=== PATIENT | female | born 2005 | race Caucasian/White ===

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

== ENCOUNTER 2024-06-24 21:47 | Emergency (ER) | payer MEDICAID, SELFPAY ==
[2024-06-24 22:01] VITALS: BP 121/78; PULSE 91; RESP 16; TEMP 36.7; O2SAT 99; BMI 19.7
--- NOTE | 2024-06-24 22:20 | USR_ITS ---
PROCEDURE INFORMATION: Exam: US First Trimester, Transabdominal and US , Transvaginal Exam date and time: 06/24/2024 10:56 PM Age: 19 years old Clinical indication: complicated by abdominal or pelvic pain; Lower; First trimester (<14 weeks 0 days); Gestational age or lmp: 4w; Additional info: Cramping, lmp 05/24/24 LABS AND CLINICAL REPORTS: Last menstrual period start date: 05/24/2024 Estimated due date (Established): 02/28/2025 TECHNIQUE: Imaging protocol: Real-time transabdominal obstetrical ultrasound of the maternal pelvis and a first trimester , less than 14 weeks 0 days, with image documentation. Transvaginal imaging was used for better evaluation of the fetus, adnexa, and/or cervix. COMPARISON: CT chest abdpel w/*[id number] 08/09/2023 4:08 PM FINDINGS: GESTATION: Gestation: Not visualized. Embryo/ cardiac activity (BPM): Not detected. Extra-embryonic membranes/Placenta: Not visualized. Amniotic/Chorionic fluid: Not visualized. MATERNAL: Uterus: Unremarkable. Endometrial stripe 1.0 cm in thickness. Cervix: Cervical length measures 3.1 cm. Trace fluid in the cervix. Right ovary/adnexa: Right ovary measures 2.4 x 1.7 x 3.1 cm. Subcentimeter anechoic structure in the right ovary likely a dominant follicle or corpus luteal cyst. Normal waveforms and color Doppler imaging. Left ovary/adnexa: Left ovary measures 1.5 x 1.5 x 2.1 cm. Normal waveforms on color Doppler imaging. Intraperitoneal space: No intraperitoneal free fluid. Urinary bladder: Small echogenic debris within the urinary bladder. US/US OB <=14 wk fetus w transvag IMPRESSION: 1. No intrauterine identified, possibly too early for dates. Correlate with beta HCG levels and consider short interval imaging follow-up as clinically warranted. 2. Small amount of echogenic debris within the urinary bladder could represent infection versus hemorrhage. Correlate with clinical findings. 3. Additional ancillary findings as above.
--- NOTE | 2024-06-24 22:20 | PC.NURSE ---
this nurse assumed pt care from Teresa GODWIN at 2220.
--- NOTE | 2024-06-24 22:22 | ED_ITS ---
HPI - 2 General: Chief complaint: Abdominal Pain Stated complaint: 4 wk preg spotting cramping Time Seen by Provider: 06/24/24 22:08 Source: patient Mode of arrival: ambulatory Limitations: no limitations History of Present Illness: Patient is a 19-year-old female that presents to the emergency department with pelvic cramping. She states she recently found out that she was but does not have an appointment with an CARDIOLOGY MANAGER until July 10. She states she began having some cramping today. She denies any bleeding or spotting. She denies any pain or burning with urination or blood in her urine. She denies any back pain. She states she has had some vaginal discharge but no known exposures to sexually transmitted infections. She states this is her first . She states she has had a mild cough and some shortness of breath with the cough. She denies any fever or chills. She denies any leg pain or swelling. She denies any significant nausea or vomiting. She presents to the emergency department for further evaluation and treatment. Associated symptoms: Reports abdominal pain (Suprapubic); Deny dysuria, headache(s), nausea or vomiting Related Data Allergies Allergy/AdvReac Type Severity Reaction Status Date / Time No Known Allergies Allergy Verified 08/09/23 15:44 Review of Systems 2 Const: Reports: chills (Intermittent); Denies: fever(s) Eyes: Denies: eye discharge or eye redness ENMT: Denies: throat pain or ear or mastoid pain Card: Denies: chest pain or edema Resp: Reports: dyspnea (Mild) and non-productive cough; Denies: wheezing or stridor GI: Reports: abdominal pain (Suprapubic); Denies: nausea, vomiting or hematemesis : Denies: flank pain, difficulty voiding, dysuria or urinary frequency Musc: Denies: back pain, extremity pain or extremity swelling Skin/Breast: Denies: rash or pruritus Neuro: Denies: headache(s), numbness in extremities or weakness in extremities Psych: Denies: anxiety or depression Endo: Denies: polyuria or polydipsia Popeye/Lymph: Denies: petechiae All/Imm: Denies: throat swelling or tongue swelling PFSH ED 2 PFSH: Medical History (Updated 06/25/24 @ 00:54 by RUBEN Hardwick) No pertinent past medical history Surgical History (Updated 06/24/24 @ 22:37 by RUBEN Hardwick) No pertinent past surgical history Social History (Updated 06/24/24 @ 22:37 by RUBEN Hardwick) Smoking and tobacco/nicotine status: former use of tobacco/nicotine Physical Exam 2 Const: COMMON NORMALS: no acute distress, patient oriented x3 and alert G ENERAL APPEARANCE: cooperative ORIENTATION/CONSCIOUSNESS: Yes awake HENMT: COMMON NORMALS: normocephalic, atraumatic, external ears normal, EAC's normal, TM's normal bilaterally and Normal external nose present HEAD & SCALP: normocephalic and atraumatic FACE & SINUS: normal facial exam NOSE: Normal external nose present and Normal nares present EXTERNAL EAR: Yes external ears normal EXTERNAL AUDITORY CANAL: EAC's normal TYMPANIC MEMBRANE: TM's normal bilaterally MOUTH: Normal oral and palatal mucosa present THROAT: posterior oropharynx normal and tonsils normal Eye: COMMON NORMALS: conjunctivae normal ALIGNMENT: Yes alignment normal CONJUNCTIVA: Yes conjunctivae normal Neck/C-Spine: COMMON NORMALS: full ROM Resp: COMMON NORMALS: normal respiratory effort, No retractions, No use of accessory muscles and clear to auscultation bilaterally AUSCULTATION: clear to auscultation bilaterally, no crackles, no rales, no rhonchi and no wheezes Cardio: COMMON NORMALS: regular rate and regular rhythm RATE: regular rate RHYTHM: regular rhythm GI: COMMON NORMALS: Normal to inspection, nondistended, normoactive bowel sounds present, Soft to palpation and non-tender PALPATION: Yes Soft to palpation RECTAL EXAM: deferred : COMMON NORMALS: Yes no CVA tenderness BLADDER/KIDNEY EXAM: Yes no CVA tenderness OB/EXTERNAL & SPECULUM: Deferred OB/external & speculum exam (Patient declines a pelvic exam) Back/Pelvis: COMMON NORMALS: no CVA tenderness Extremity: COMMON NORMALS: normal to inspection, full ROM, no calf tenderness and no pedal edema Neuro: COMMON NORMALS: patient oriented x3 SENSORIUM/ORIENTATION: Yes alert Psych: COMMON NORMALS: cooperative, normal affect and speech normal A TTITUDE: Yes calm ACTIVITY/MOTOR BEHAVIOR: Yes appropriate eye contact S PEECH: Yes normal speech Skin: COMMON NORMALS: no rashes or lesions noted and no wounds GENERAL SKIN EXAM: no rashes or lesions noted Course 2 Vital Signs: Vital signs: Vital Signs Temperature 98.1 F 06/24/24 22:01 Pulse Rate 91 06/24/24 22:01 Respiratory Rate 16 06/24/24 22:01 Blood Pressure 121/78 06/24/24 22:01 Pulse Oximetry 99 06/24/24 22:01 Oxygen Delivery Me thod Room Air 06/24/24 22:01 MDM - OB/Uterine Contractions Medical Decision Making Patient was advised of the exam, lab and imaging findings. Thankfully the patient is O+ blood type. She does not have any vaginal bleeding. She denies any pain or burning with urination and there is no sign of urinary tract infection. She did not have any blood in her urine either. There was a small amount of echogenic debris within the bladder that could represent infection versus hemorrhage but neither one of these is consistent with a urinalysis. The patient declined a pelvic exam and so she did not have any swabs obtained at this visit to rule out possible infection. The patient was advised she will need to follow-up with her CARDIOLOGY MANAGER for serial hCG levels and possibly an additional ultrasound as well as any additional tests that they feel are necessary. She was advised to return immediately to the emergency department with any worsening pain, fever or any other worsening symptoms. The patient expressed understanding. Lab Data I reviewed the patient's lab results. 06/24/24 23:17 06/24/24 23:17 Radiology Impressions Obstetrics Ultrasound 06/24/24 22:20 IMPRESSION: 1. No intrauterine identified, possibly too early for dates. Correlate with beta HCG levels and consider short interval imaging follow-up as clinically warranted. 2. Small amount of echogenic debris within the urinary bladder could represent infection versus hemorrhage. Correlate with clinical findings. 3. Additional ancillary findings as above. Laboratory Results WBC 7.07 10^3/uL (4.5-13.0) 06/24/24 23:17 RBC 4.10 10^6/uL (3.85-5.65) 06/24/24 23:17 Hgb 11.90 g/dL (12.4-14.8) L 06/24/24 23:17 Hct 36.1 % (36-47) 06/24/24 23:17 MCV 88.0 fl (85-98) 06/24/24 23:17 MCH 29.0 pg (27-33) 06/24/24 23:17 MCHC 33.0 g/dL (30-55) 06/24/24 23:17 RDW 12.8 % (12.1-15.1) 06/24/24 23:17 Plt Count 251 10^3/cmm (157-399) 06/24/24 23:17 MPV 10.8 fL (7.4-10.4) H 06/24/24 23:17 Neut % (Auto) 42.3 % 06/24/24 23:17 Lymph % (Auto) 47.5 % 06/24/24 23:17 Butler % (Auto) 6.4 % 06/24/24 23:17 Eos % (Auto) 3.0 % 06/24/24 23:17 Baso % (Auto) 0.7 % 06/24/24 23:17 Neut # (Auto) 2.99 10^3/uL (1.8-8.0) 06/24/24 23:17 Lymph # (Auto) 3.4 10^3/uL (1.5-6.5) 06/24/24 23:17 Butler # (Auto) 0.5 10^3/uL (0.2-0.9) 06/24/24 23:17 Eos # (Auto) 0.2 10^3/uL (0.0-0.8) 06/24/24 23:17 Baso # (Auto) 0.1 10^3/uL (0.0-0.1) 06/24/24 23:17 Nucleated RBC % (auto) 0 % 06/24/24 23:17 Nucleated RBCs # 0.0 /100WBC 06/24/24 23:17 Sodium 136 mmol/L (136-145) 06/24/24 23:17 Potassium 3.7 mmol/L (3.5-5.1) 06/24/24 23:17 Chloride 103 mmol/L (98-107) 06/24/24 23:17 Carbon Dioxide 23 mmol/L (22-29) 06/24/24 23:17 Anion Gap 13.7 (5-19) 06/24/24 23:17 BUN 6 mg/dL (6-20) 06/24/24 23:17 Creatinine 0.7 mg/dL (0.5-0.9) 06/24/24 23:17 GFR Calculation 106.7 mL/min (90-130) 06/24/24 23:17 Glucose 83 mg/dL (65-115) 06/24/24 23:17 Calculated Osmolality 279 mOsm/kg (285-295) L 06/24/24 23:17 Calcium 9.1 mg/dL (8.5-10.5) 06/24/24 23:17 Total Bilirubin 0.6 mg/dL (0.15-1.2) 06/24/24 23:17 AST 11 U/L (0-32) 06/24/24 23:17 ALT 7 U/L (0-33) 06/24/24 23:17 Alkaline Phosphatase 46 U/L (35-105) 06/24/24 23:17 Total Protein 7.1 g/dL (6.6-8.7) 06/24/24 23:17 Albumin 4.2 g/dL (3.5-5.2) 06/24/24 23:17 Globulin 2.9 g/dL (1.3-4.6) 06/24/24 23:17 Ser , Semi-Qnt 265.10 mIU/mL 06/24/24 23:17 Urine Color Yellow (Yellow) 06/24/24 22:22 Urine Appearance Clear (CLEAR) 06/24/24 22:22 Urine pH 5.5 (5-7) 06/24/24 22:22 Ur Specific [place] 1.017 (1.005-1.030) 06/24/24 22:22 Urine Protein Negative (Negative) 06/24/24 22:22 Urine Glucose (UA) Negative (Normal) 06/24/24 22:22 Urine Ketones Trace (Negative) 06/24/24 22:22 Urine Blood Negative (Negative) 06/24/24 22:22 Urine Nitrate Negative (Negative) 06/24/24 22:22 Urine Bilirubin Negative (Negative) 06/24/24 22:22 Urine Urobilinogen 1.0 mg/dL (Negative) 06/24/24 22:22 Ur Leukocyte Esterase Negative (Negative) 06/24/24 22:22 Amorphous Sediment Not Reportable 06/24/24 22:22 Influenza A (PCR) Negative (Negative) 06/24/24 22:37 Influenza Type B (PCR) Negative (Negative) 06/24/24 22:37 RSV (PCR) Negative (Negative) 06/24/24 22:37 SARS-CoV-2 (PCR) Negative (Negative) 06/24/24 22:37 Blood Type O Positive 06/24/24 23:14 Rho(D) Type Rh positive 06/24/24 23:14 All radiology interpretation(s) finalized by discharge Critical Care Time 2 Critical Care Time: Critical Care Time: No Discharge Plan Discharge Patient Disposition: Home Clinical Impression: Abdominal cramping affecting Condition: Stable Prescriptions: Discontinued diclofenac sodium 75 mg tablet,delayed release (DR/EC) 75 mg PO Q12H PRN (Reason: pain) Qty: 20 0RF Discharge Orders: Discharge ED (Routine); Ordered 06/25/24 Ordered By: Alan Lira Referrals: Marita Gomez, [employer]OCI[employer] JUDGE [Primary Care Provider] - Discharge Diet: Usual diet Discharge Activity: Resume usual activity Patient Instructions: Opioid Safety, Pain Management, Abdominal Pain in (ED), Threatened Miscarriage (ED) Activity Restrictions/Additional Instructions: [id number] Tylenol as needed for cramping. Rest, increase fluids. Follow-up with your CARDIOLOGY MANAGER as you may need additional blood test to follow the . You may also need an additional ultrasound. Return to the emergency department with any worsening symptoms such as heavy vaginal bleeding, fever, worsening abdominal pain/cramping or any other worsening symptoms. Print Language: Indian Coding Level of Care Code ED Credit And Collection Manager for [place] Bautista
[2024-06-24 22:36] LABS: Add Urine Microscopic? NO
[2024-06-24 22:38] LABS: Bilirubin Urine Negative (Negative); Blood Urine Negative (Negative); Glucose Urine UA Negative (Normal); Ketones Urine Trace (Negative); Leukocyte Esterase Urine Negative (Negative); Nitrate Urine Negative (Negative); Protein Urine Negative (Negative); Specific Gravity, Urine 1.017 (1.005-1.030); Urine Appearance Clear (CLEAR); Urine Color Yellow (Yellow); pH Urine 5.5 (5-7)
[2024-06-24 22:41] LABS: Charge for UA Resulting for Rev
[2024-06-24 23:24] LABS: Influenza A NEGATIVE (Negative); Influenza B NEGATIVE (Negative); Respiratory Syncytial Virus Ce NEGATIVE (Negative); SARS-CoV-2 PCR NEGATIVE (Negative)
[2024-06-24 23:24] LABS: Basophils # 0.1 10^3/uL (0.0-0.1); Basophils % 0.7 %; Eosinophils # 0.2 10^3/uL (0.0-0.8); Hematocrit 36.1 % (36-47); Lymphocytes # 3.4 10^3/uL (1.5-6.5); Lymphocytes % 47.5 %; Mean Platelet Volume 10.8 fL (7.4-10.4); Monocytes # 0.5 10^3/uL (0.2-0.9); Monocytes % 6.4 %; Neutrophils # 2.99 10^3/uL (1.8-8.0); Neutrophils % 42.3 %; Nucleated Red Blood Cells % 0 %; Platelet Count 251 10^3/cmm (157-399); Red Cell Distribution Width 12.8 % (12.1-15.1); White Blood Count 7.07 10^3/uL (4.5-13.0)
[2024-06-24 23:56] LABS: Alanine Aminotransferase 7 U/L (0-33); Albumin Level 4.2 g/dL (3.5-5.2); Alkaline Phosphatase 46 U/L (35-105); Anion Gap 13.7 (5-19); Aspartate Amino Transferase 11 U/L (0-32); Blood Urea Nitrogen 6 mg/dL (6-20); Calcium 9.1 mg/dL (8.5-10.5); Carbon Dioxide 23 mmol/L (22-29); Chloride 103 mmol/L (98-107); Creatinine Clr Calc Pharmacy 108.6486; Globulin 2.9 g/dL (1.3-4.6); Glomerular Filtration Rate 106.7 mL/min (90-130); Glucose 83 mg/dL (65-115); Osmolality Calculated 279 mOsm/kg (285-295); Potassium 3.7 mmol/L (3.5-5.1); Sodium 136 mmol/L (136-145); Total Bilirubin 0.6 mg/dL (0.15-1.2); Total Protein 7.1 g/dL (6.6-8.7)
== END 2024-06-25 01:09 | disposition home or self-care (01) ==
PROVIDERS: Emergency Provider Physician Assistant; PCP Nurse Practitioner Family
DX: O26.899 Other specified pregnancy related conditions, unspecified trimester (principal); Z87.891 Personal history of nicotine dependence; Z11.52 Encounter for screening for COVID-19
CPT/HCPCS: 12345; 36415; 76801; 76817; 80053; 81003; 84702; 85025; 86900; 87637; 99284

== ENCOUNTER → 2024-07-10 08:35 | Outpatient (BNVA) | payer MEDICAID, SELFPAY | PROVIDERS: PCP Nurse Practitioner Family; Visit Provider Nurse Practitioner Women's Health | DX: Z32.01 Encounter for pregnancy test, result positive (principal); N91.2 Amenorrhea, unspecified | CPT/HCPCS: 81025; 84702; 86850; 86900 ==

== ENCOUNTER → 2024-07-18 07:59 | Outpatient (BNVA) | payer MEDICAID, SELFPAY | PROVIDERS: PCP Nurse Practitioner Family; Visit Provider Nurse Practitioner Women's Health | DX: O34.591 Maternal care for other abnormalities of gravid uterus, first trimester (principal); N83.11 Corpus luteum cyst of right ovary | CPT/HCPCS: 76801 ==

== ENCOUNTER → 2024-08-08 08:17 | Outpatient (BNVA) | payer MEDICAID, SELFPAY | PROVIDERS: PCP Nurse Practitioner Family; Visit Provider Nurse Practitioner Women's Health | DX: Z34.90 Encounter for supervision of normal pregnancy, unspecified, unspecified trimester (principal) | CPT/HCPCS: 80307; 84315; 84443; 85025; 86592; 86762; 86803; 87086; 87340; 87491; 87591; 87661; 87806 ==

== ENCOUNTER → 2024-08-17 10:24 | Outpatient (BNVA) | payer MEDICAID, SELFPAY | PROVIDERS: PCP Nurse Practitioner Family; Visit Provider Obstetrics & Gynecology | DX: Z34.90 Encounter for supervision of normal pregnancy, unspecified, unspecified trimester (principal) | CPT/HCPCS: 84315 ==

== ENCOUNTER → 2024-09-14 08:06 | Outpatient (BNVA) | payer MEDICAID, SELFPAY | PROVIDERS: PCP Nurse Practitioner Family; Visit Provider Nurse Practitioner Women's Health | DX: Z34.90 Encounter for supervision of normal pregnancy, unspecified, unspecified trimester (principal) | CPT/HCPCS: 82105; 84315 ==

== ENCOUNTER → 2024-10-12 09:32 | Outpatient (BNVA) | payer MEDICAID, SELFPAY | PROVIDERS: PCP Nurse Practitioner Family; Visit Provider Obstetrics & Gynecology | DX: Z34.92 Encounter for supervision of normal pregnancy, unspecified, second trimester (principal) | CPT/HCPCS: 76805 ==

== ENCOUNTER → 2024-10-18 08:03 | Outpatient (BNVA) | payer MEDICAID, SELFPAY | PROVIDERS: PCP Nurse Practitioner Family; Visit Provider Obstetrics & Gynecology | DX: Z34.90 Encounter for supervision of normal pregnancy, unspecified, unspecified trimester (principal) | CPT/HCPCS: 84315 ==

== ENCOUNTER → 2024-11-09 11:43 | Outpatient (BNVA) | payer MEDICAID, SELFPAY | PROVIDERS: PCP Nurse Practitioner Family; Visit Provider Nurse Practitioner Women's Health | DX: Z36.9 Encounter for antenatal screening, unspecified (principal) | CPT/HCPCS: 76816 ==

== ENCOUNTER → 2024-11-20 08:46 | Outpatient (BNVA) | payer MEDICAID, SELFPAY | PROVIDERS: PCP Nurse Practitioner Family; Visit Provider Nurse Practitioner Women's Health | DX: Z34.90 Encounter for supervision of normal pregnancy, unspecified, unspecified trimester (principal) | CPT/HCPCS: 84315 ==

== ENCOUNTER → 2024-12-11 08:20 | Outpatient (BNVA) | payer MEDICAID, SELFPAY | PROVIDERS: PCP Nurse Practitioner Family; Visit Provider Obstetrics & Gynecology | DX: Z34.90 Encounter for supervision of normal pregnancy, unspecified, unspecified trimester (principal) | CPT/HCPCS: 82950; 84315; 85025 ==

== ENCOUNTER → 2024-12-21 09:24 | Outpatient (BNVA) | payer MEDICAID, SELFPAY | PROVIDERS: PCP Nurse Practitioner Family; Visit Provider Obstetrics & Gynecology | DX: Z34.90 Encounter for supervision of normal pregnancy, unspecified, unspecified trimester (principal) | CPT/HCPCS: 84315 ==

== ENCOUNTER → 2025-01-10 15:42 | Outpatient (BNVA) | payer MEDICAID, SELFPAY | PROVIDERS: PCP Nurse Practitioner Family; Visit Provider Obstetrics & Gynecology | DX: Z34.90 Encounter for supervision of normal pregnancy, unspecified, unspecified trimester (principal) | CPT/HCPCS: 84315 ==

== ENCOUNTER 2025-01-22 15:08 | Outpatient (CLI) | payer MEDICAID, SELFPAY | END 2025-01-22 15:09 | disposition home or self-care (01) | LOC: RAD 15:11 | PROVIDERS: PCP Nurse Practitioner Family; Visit Provider Nurse Practitioner Women's Health | DX: Z34.90 Encounter for supervision of normal pregnancy, unspecified, unspecified trimester (principal) | CPT/HCPCS: 84315 ==

== ENCOUNTER 2025-02-05 08:53 | Outpatient (CLI) | payer MEDICAID, SELFPAY ==
[2025-02-05] VITALS (13 sets, daily range): BP systolic 101–146; BP diastolic 64–98; PULSE 79–109; RESP 18; BMI 27.1
[2025-02-05 11:04] LABS: Hematocrit 31.3 % (36-47); Hemoglobin 10.20 g/dL (11.27-16.99); Mean Corpuscular HGB Conc 32.6 g/dL (30-55); Mean Corpuscular Hemoglobin 27.6 pg (27-33); Mean Corpuscular Volume 84.8 fl (85-98); Nucleated Red Blood Cells % 0 %; Platelet Count 263 10^3/cmm (157-399); Red Blood Count 3.69 10^6/uL (3.85-5.65); White Blood Count 10.65 10^3/uL (3.29-11.43)
[2025-02-05 11:27] LABS: Alanine Aminotransferase 8 U/L (0-33); Albumin Level 3.5 g/dL (3.5-5.2); Alkaline Phosphatase 160 U/L (35-105); Anion Gap 18.1 (5-19); Aspartate Amino Transferase 18 U/L (0-32); Blood Urea Nitrogen 6 mg/dL (6-20); Calcium 8.6 mg/dL (8.5-10.5); Carbon Dioxide 20 mmol/L (22-29); Chloride 102 mmol/L (98-107); Creatinine Clr Calc Pharmacy 166.3356; Globulin 3.0 g/dL (1.3-4.6); Glucose 81 mg/dL (65-115); Osmolality Calculated 279 mOsm/kg (285-295); Potassium 4.1 mmol/L (3.5-5.1); Sodium 136 mmol/L (136-145); Total Protein 6.5 g/dL (6.6-8.7)
== END 2025-02-05 12:13 | disposition home or self-care (01) ==
LOC: OPOB 08:54 → OBGYN 08:56
PROVIDERS: PCP Nurse Practitioner Family; Visit Provider Obstetrics & Gynecology
DX: O13.9 Gestational [pregnancy-induced] hypertension without significant proteinuria, unspecified trimester (principal); Z3A.00 Weeks of gestation of pregnancy not specified
CPT/HCPCS: 36415; 59025; 80053; 84315; 85025; 87081; 99211

== ENCOUNTER 2025-02-06 09:02 | Outpatient (CLI) | payer MEDICAID, SELFPAY ==
[2025-02-06 09:27] LABS: Total Volume, Urine 2200 mL
== END 2025-02-06 09:03 | disposition home or self-care (01) ==
LOC: OPOB 09:02
PROVIDERS: PCP Nurse Practitioner Family; Visit Provider Obstetrics & Gynecology
DX: O26.899 Other specified pregnancy related conditions, unspecified trimester (principal); Z3A.00 Weeks of gestation of pregnancy not specified
CPT/HCPCS: 84156

== ENCOUNTER 2025-02-07 08:03 | Outpatient (CLI) | payer MEDICAID, SELFPAY ==
--- NOTE | 2025-02-07 08:00 | USR_ITS ---
PROCEDURE INFORMATION: Exam: US , Follow up Exam date and time: 02/07/2025 8:16 AM Age: 20 years old Clinical indication: Screening exam; Routine US, uterus; Additional info: Z34.90 - encounter for supervision of normal , u. . . , LABS AND CLINICAL REPORTS: Gestational age (Established): 36 w 5 d Estimated due date (Established): 03/02/2025 TECHNIQUE: Imaging protocol: Transabdominal ultrasound of the uterus, real time with image documentation. Follow-up (eg, re-evaluation of size by measuring standard growth parameters and amniotic fluid volume, re-evaluation of organ system(s) suspected or confirmed to be abnormal on a previous scan). COMPARISON: [place] [id number] 11/09/2024 11:47 AM FINDINGS: Gestation: Intrauterine gestation. heart rate: 155 bpm presentation and position: Cephalic Placenta: Posterior BIOMETRY: Gestational age (AUA): 36 weeks 1 day Estimated due date (AUA): 03/06/2025 Estimated weight: 2854.4 g. EFW by AC, BPD, FL, HC, [place] 1985, 38.2 percentile Biparietal diameter (BPD): 8.85 cm. EGA (BPD) is 35 w 5 d. 36.4 % percentile Head circumference (HC): 32.27 cm. EGA (HC) is 36 w 3 d. 18 % percentile Abdominal circumference (AC): 31.87 cm. EGA (AC) is 35 w 6 d. 35.8 % percentile Femur length (FL): 7.18 cm. EGA (FL) is 36 w 5 d. 49.5 % percentile HC/AC: 1.01. (Normal range: 0.92 - 1.08) FL/HC: 22.25. (Normal range: 20.2 - 22.17) FL/BPD: 81.13. (Normal range: 71 - 87) FL/AC: 22.53. (Normal range: 20 - 24) MATERNAL: Cervix: Cervical length measures 4.2 cm. US/[place] [id number] IMPRESSION: 1. Single live intrauterine with normal heart rate. 2. Estimated weight 2854 g, 38.2 percentile.
== END 2025-02-07 08:04 | disposition home or self-care (01) ==
LOC: RAD 08:04
PROVIDERS: PCP Nurse Practitioner Family; Visit Provider Nurse Practitioner Women's Health
DX: Z34.93 Encounter for supervision of normal pregnancy, unspecified, third trimester (principal); Z3A.36 36 weeks gestation of pregnancy
CPT/HCPCS: 76816

== ENCOUNTER 2025-02-08 08:30 | Outpatient (CLI) | payer MEDICAID, SELFPAY ==
[2025-02-08] VITALS (7 sets, daily range): BP systolic 130–142; BP diastolic 89–95; PULSE 78–104; BMI 26.9
== END 2025-02-08 10:45 | disposition home or self-care (01) ==
LOC: OPOB 08:30 → OBGYN 08:31
PROVIDERS: Absent Provider Obstetrics & Gynecology; PCP Nurse Practitioner Family; Visit Provider Obstetrics & Gynecology
DX: O13.9 Gestational [pregnancy-induced] hypertension without significant proteinuria, unspecified trimester (principal); Z3A.00 Weeks of gestation of pregnancy not specified
CPT/HCPCS: 59025; 99211

== ENCOUNTER 2025-02-08 12:25 | Inpatient (IN) | payer MEDICAID, SELFPAY ==
[2025-02-08] VITALS (13 sets, daily range): BP systolic 127–141; BP diastolic 70–94; PULSE 76–100; BMI 26.9
--- NOTE | 2025-02-08 12:35 | PM.OBGYHP ---
Providers/Chief Complaint Admitting Physician: Aleksandr Garsia MD Primary INSTRUMENT SETTER: Aleksandr Garsia MD Primary Care Provider: Marita Gomez Chief Complaint: IOL HPI INSTRUMENT SETTER History of Present Illness Héctor Snow is a 20 year old female G1 EDC February 28, 2025 At 37 w 1 d Has been followed for mildly elevated BPs Today, while being monitored for NST, found to have persistently elevated BPs Patient complains of intermittently ?bad? headache No other c/o Now admitted for induction of labor + movements No abdominal pain, vaginal bleeding Present Details : 1 Labs Rubella: Immune RPR: Negative GBS: Negative Medications/Allergies Home Medications ?Medication ?Instructions ?Recorded ?Confirmed ?Last Taken ?Type docosahexaenoic acid 200 mg mg PO DAILY 07/10/24 02/05/25 Unknown History capsule ( DHA) metoclopramide HCl 10 mg tablet 10 mg PO Q6H PRN nausea and 08/02/24 02/05/25 Unknown Rx (Reglan) vomiting #60 tabs famotidine 20 mg tablet (Pepcid) 20 mg PO BID #60 tabs 09/14/24 02/05/25 Unknown Rx Allergies Allergy/AdvReac Type Severity Reaction Status Date / Time No Known Allergies Allergy Verified 02/05/25 08:17 PFSH INSTRUMENT SETTER PFSH: Surgical History No pertinent past surgical history Family History Grandmother Breast cancer Father Hypertension Denies family history of Colon cancer Ovarian cancer Prostate cancer Diabetes Heart disease Hyperlipidemia Uterine cancer Thyroid disease Stroke Social History Smoking and tobacco/nicotine status: former use of tobacco/nicotine (12/05/2024) History History History 1 Term Miscarriages/Ectopic Living Children Care DEON Calculator Estimated Delivery Date Method Current WG Current Estimate 02/28/25 LMP (Uncertain) 37w 2d Other Estimates 03/02/25 Ultrasound #1 37w 0d Specific Issues/Plans NAUSEA: reglan sent to pharmacy, pepcid added Vitals/I&O/Wt Last Vital Signs Temp 97.7 F 02/09/25 08:45 Pulse 95 02/09/25 10:30 BP 142/83 02/09/25 10:30 Pulse Ox 100 02/09/25 07:52 O2 Del Method Room Air 02/08/25 12:45 02/08/25 02/09/25 02/09/25 22:59 06:59 14:59 Intake Total 400 / 400 10.617 / 123.704 5746 / 1000 Balance 400 / 400 10.617 / 951.043 6448 / 1000 Weight last 48 hrs Weight 152 lb Physical Exam Narrative: Weight 152 lbs; 5?4? General comfortable, awake, alert BPs 133 / 89; 135 / 86; 127 / 91; 141 / 81 Lungs: clear Cor: RRR Abd: nontender Cervix: closed / long / -3 / cephalic Ext: no edema External monitor: heart tracing good variability, + accelerations Urinary Catheter Management: [place]: Cath Placed During This Visit: yes Urinary Catheter Date of Insertion: 02/09/25 Urinary Catheter Time of Insertion: 08:45 Data 02/08/25 12:40 Results Labs OB ([facility]): Obstetrics US 02/07/25 Blood Type O Positive 02/08/25 Antibody Screen Negative 02/08/25 Hct, (36-47) 30.9 % L 02/08/25 Hgb, (11.27-16.99) 10.00 g/dL L 02/08/25 Rho(D) Type Rh positive 02/08/25 Plt Count, (157-399) 293 10^3/cmm 02/08/25 Hep Bs Antigen, (Nonreactive) Non-reactive 08/08/24 Hepatitis C Antibody, (Nonreactive) Non-reactive 08/08/24 Rubella IgG Antibody, (0.0-10.0) 87.7 IU/mL H 08/08/24 RPR, (Nonreactive) Nonreactive 08/08/24 HIV 1&2 Ab & HIV 1 Ag, (Non-Reactiv) Non-reactive 08/08/24 TSH, (0.27-4.20) 4.10 uIU/mL 08/08/24 Glucose 1 Hr 50 gm, (85-140) 95 mg/dL 12/11/24 Ser , Semi-Qnt 23990.00 mIU/mL 07/10/24 HCG, Qual, (Negative) Positive H 07/10/24 Urine Opiates Screen, (Negative) Negative ng/mL 08/08/24 Ur Barbiturates Screen, (Negative) Negative ng/mL 08/08/24 Ur Phencyclidine Scrn, (Negative) Negative ng/mL 08/08/24 Ur Amphetamines Screen, (Negative) Negative ng/mL 08/08/24 U Benzodiazepines Scrn, (Negative) Negative ng/mL 08/08/24 Urine Cocaine Screen, (Negative) Negative ng/mL 08/08/24 U Marijuana (THC) Screen, (Negative) Positive ng/mL H 08/08/24 Micro Urine Specimen 08/08/24 A&P Assessment and plan 1. Encounter for induction of labor: 37 w 1 d Elevated BPs, gestational hypertension Admit for induction of labor PDMP PDMP Reviewed: Not Reviewed Attestations Medical Necessity Statement*: patient at 37 w 1 d, with gestational hypertension, admit for induction of labor Coding Level of Care Code Acute Code for Chg Fwd Diagnoses Encounter for induction of labor Z34.90
[2025-02-08 12:58] LABS: Hematocrit 30.9 % (36-47); Hemoglobin 10.00 g/dL (11.27-16.99); Mean Corpuscular HGB Conc 32.4 g/dL (30-55); Mean Corpuscular Hemoglobin 27.0 pg (27-33); Mean Corpuscular Volume 83.5 fl (85-98); Nucleated Red Blood Cells % 0 %; Platelet Count 293 10^3/cmm (157-399); Red Blood Count 3.70 10^6/uL (3.85-5.65); White Blood Count 8.41 10^3/uL (3.29-11.43)
[2025-02-09] VITALS (57 sets, daily range): BP systolic 115–171; BP diastolic 67–129; PULSE 62–153; RESP 16–17; TEMP 23.8–36.8; O2SAT 97–100
[2025-02-09] MEDS: oxytocin 30 UNIT/500 ML BAG IV (01:35)
[2025-02-09] MEDS: ROPivacaine premix 200 MG/100 ML PREMIX 10 MG EPIDURAL (07:57)
--- NOTE | 2025-02-09 08:15 | ANES.PREANE2 ---
Pre-Anesthetic Assessment Height/Weight: Height 5 ft 3 in Weight 152 lb Pulse BP Pulse Ox O2 Del Method 76 136/85 100 Room Air 02/09/25 07:59 02/09/25 07:59 02/09/25 07:52 02/08/25 12:45 Preop Diagnosis: IUP Was Beta Rohith taken within 24 hours: N/A Was Clonidine taken within 24 hours: N/A Social No alcohol and No tobacco Exam alert, oriented x 3, clear to auscultation bilaterally and regular rate & rhythm Airway Submandibular: within normal limits Cervical ROM: within normal limits Mallampati: Class I Dentition: full Anesthetic Plan ASA status: 2 Anesthesia: Regional (specify below) Other: G1, P0 here in active labor Gestational hypertension, BP 136/85 currently Denies any other issues during Labs reviewed acceptable for procedure Plan for routine epidural placement Medications/Allergies Home Medications ?Medication ?Instructions ?Recorded ?Confirmed ?Last Taken ?Type docosahexaenoic acid 200 mg mg PO DAILY 07/10/24 02/05/25 Unknown History capsule ( DHA) metoclopramide HCl 10 mg tablet 10 mg PO Q6H PRN nausea and 08/02/24 02/05/25 Unknown Rx (Reglan) vomiting #60 tabs famotidine 20 mg tablet (Pepcid) 20 mg PO BID #60 tabs 09/14/24 02/05/25 Unknown Rx Allergies Allergy/AdvReac Type Severity Reaction Status Date / Time No Known Allergies Allergy Verified 02/05/25 08:17 Current Medications Generic Name Dose Route Start Last Admin Trade Name Freq PRN Reason Stop Dose Admin Dextrose/Lactated Ringer's 1,000 mls @ 125 mls/hr 02/08/25 12:45 02/09/25 01:35 Dextrose 5%-Lactated Ringers IV 125 mls/hr .Q8H RAE Administration Oxytocin 30 unit in 500 mls @ 1 mls/hr 02/09/25 01:15 02/09/25 06:39 Pitocin IV 0 milliunit/min .Q24H RAE 0 mls/hr Protocol Titration 1 MILLIUNIT/MIN Ropivacaine 200 mg in 100 mls @ 10 mls/hr 02/09/25 06:45 02/09/25 07:57 Naropin Premix EPIDURAL 10 mls/hr .Q10H RAE Administration Sodium Chloride 1,000 mls @ 999 mls/hr 02/09/25 06:37 02/09/25 07:48 Sodium Chloride 0.9% IV 999 mls/hr .Q1H1M PRN Administration See label comments Misoprostol 25 mcg 02/08/25 20:30 02/08/25 20:50 Misoprostol 100 Mcg Tablet VAGINAL 25 mcg Q4H RAE Administration PFSH Anesthesia Surgical History No pertinent past surgical history Family History Grandmother Breast cancer Father Hypertension Denies family history of Colon cancer Ovarian cancer Prostate cancer Diabetes Heart disease Hyperlipidemia Uterine cancer Thyroid disease Stroke Social History Smoking and tobacco/nicotine status: former use of tobacco/nicotine (12/05/2024) Female Reproductive History : 1 Data Anesthesia 02/08/25 12:40 Short CBC 02/08/25 Range/Units 12:40 WBC 8.41 (3.29-11.43) 10^3/uL Hgb 10.00 L (11.27-16.99) g/dL Hct 30.9 L (36-47) % MCV 83.5 L (85-98) fl Plt Count 293 (157-399) 10^3/cmm Neut % (Auto) 59.2 % Neut # (Auto) 4.99 (1.8-7.7) 10^3/uL Blood Bank 02/08/25 12:40 Blood Type O Positive Rho(D) Type Rh positive Antibody Screen Negative
--- NOTE | 2025-02-09 08:16 | P.ANES_ITS ---
Anesthesia Procedures Procedure/Date: 02/09/25 Epidural: Time Out Performed: Yes Consents Signed: Procedure Consent Consent: requested by attending/covering physician and from patient Lumbar Level: L3-L4 Epidural position: sitting Additional Comments: Site was sterilely prepped with ChloraPrep. 1% lidocaine was used to numb skin. An 18-gauge epidural needle was then introduced until [id number] was achieved around 7 cm to the skin. Epidural catheter was then threaded with negative paresthesia. Test dose given with no symptoms. Epidural catheter was left at 15 cm to the skin. Sterile dressing was applied. Ropivacaine 0.2% was set at 10 mL/h with [employer] in place
[2025-02-09] MEDS: ondansetron 2 mg/ML SDV 2 mL 4 MG IVP (11:22)
--- NOTE | 2025-02-09 12:20 | PM.DELIVERY ---
Delivery Note: Date of delivery: February 09, 2025 Pre-delivery diagnoses: 37 w 1 d gestational hypertension induction of labor Post-delivery diagnoses: 37 w 1 d gestational hypertension induction of labor vacuum-assisted vaginal delivery Procedure: induction of labor vacuum-assisted vaginal delivery Op report anesthesia: Epidural Delivering Physician: Aleksandr Garsia MD Estimated blood loss (mL): 300 Findings: Patient complete and pushing head NARESH, +2 station At this time, umbilical cord noted to be presenting + bradycardia noted Vacuum extractor applied Mild traction used through one UCs, brought head to perineum Shoulders delivered easily Vigorous Cord gases and blood obtained Normal placenta and cord No episiotomy / lacerations EBL: 300 cc No complications Pre-Delivery Course: normal labor course fetus reassurring throughout Delivery: vacuum-assisted vaginal delivery Post-Delivery Status: good History History History 1 Term Miscarriages/Ectopic Living Children A&P Assessment and plan 1. Vaginal delivery: PDMP PDMP Reviewed: Not Reviewed Coding Level of Care Code Acute Code for Chg Fwd Diagnoses Vaginal delivery O80
[2025-02-09] MEDS: benzocaine-menthol 78 gm Canister 1 SPRAY TOPICAL (16:34)
[2025-02-10 01:08] LABS: Hematocrit 29.3 % (36-47); Hemoglobin 8.90 g/dL (11.27-16.99); Mean Corpuscular HGB Conc 30.4 g/dL (30-55); Mean Corpuscular Hemoglobin 27.4 pg (27-33); Mean Corpuscular Volume 90.2 fl (85-98); Platelet Count 239 10^3/cmm (157-399); Red Blood Count 3.25 10^6/uL (3.85-5.65); White Blood Count 10.57 10^3/uL (3.29-11.43)
[2025-02-10] MEDS: PRENATAL VIT NO.130/IRON/FOLIC 1 EACH TABLET PO (05:27)
[2025-02-10 05:28] VITALS: BP 136/86; PULSE 71; RESP 16; O2SAT 97
[2025-02-10] MEDS: ferrous sulfate EC 325 mg Tablet PO (08:38)
[2025-02-10 10:18] VITALS: BP 153/88; PULSE 64; RESP 16; TEMP 36.5; O2SAT 97
[2025-02-10 11:15] VITALS: BP 161/98
[2025-02-10] MEDS: NIFEdipine ER (24 hr) 30 mg Tablet PO (11:53)
--- NOTE | 2025-02-10 12:26 | ANE.PACU2 ---
Inpatient post-anesthesia follow up: Airway intact: Yes Vital signs: Temperature 98.0 F Pulse Rate 89 Respiratory Rate 16 Blood Pressure 126/81 Pulse Oximetry 98 Oxygen Delivery Me thod Room Air Oxygen Flow Rate Fraction of Inspir ed Oxygen Hydration adequate: Yes Nausea and vomiting: No Pain level: 1 Mental status: Baseline Epidural Start/End: Epidural Start Date: 02/09/25 Epidural Start Time: 08:00 Epidural End Date: 02/09/25 Epidural End Time: 14:11
--- NOTE | 2025-02-10 14:10 | PM.OBGYPN ---
HADOOP APPLICATION DEVELOPER Subjective Subjective: Interval history: no c/o no headaches, dizziness, nausea, abdominal pain, bleeding normal lochia mild perineal pain, relieved with pain meds eating, voiding, ambulating well Labor: Station: +2 Amniotic Membrane Status: Ruptured Monitor Mode: Palpation Contraction Pattern: Regular Vitals/I&O/Wt Last Vital Signs Temp 98.0 F 02/11/25 10:14 Pulse 89 02/11/25 10:14 Resp 16 02/11/25 10:14 BP 126/81 02/11/25 10:14 Pulse Ox 98 02/11/25 10:14 O2 Del Method Room Air 02/11/25 04:32 Physical Exam Narrative: VS afebrile BPs 161 / 98; 153 / 88; 136 / 86; 133 / 83 General comfortable, awake, alert Lungs: clear Cor: RRR Abd: soft, nontender. Fundus firm Ext: no edema; nontender Urinary Catheter Management: [place]: Cath Placed During This Visit: yes, but has since been removed by the nurse Reason for Continuing Indwelling Catheter: Decision to DC Catheter Urinary Catheter Date of Insertion: 02/09/25 Urinary Catheter Time of Insertion: 08:45 Date Urinary Catheter Removed: 02/09/25 Time Urinary Catheter Discontinued: 12:12 Data 02/10/25 00:33 A&P Assessment and plan 1. Vaginal delivery: PPD #1 vacuum-assisted vaginal delivery doing well normal course continue care 2. Hypertension: elevated BPs c/w gestational hypertension no severe features Rx Procardia 30 mg XL one po daily PDMP PDMP Reviewed: Not Reviewed Attestations Medical Necessity Statement*: patient s/p vaginal delivery, for care Coding Level of Care Code Acute Code for Chg Fwd Diagnoses Vaginal delivery O80 Hypertension I10
[2025-02-10 16:17] VITALS: BP 135/92; PULSE 67; RESP 17; TEMP 36.7; O2SAT 98
[2025-02-10 22:12] VITALS: BP 132/86; PULSE 65; TEMP 36.4
[2025-02-11] MEDS: ferrous sulfate EC 325 mg Tablet PO (04:22)
[2025-02-11] MEDS: NIFEdipine ER (24 hr) 30 mg Tablet PO (04:22)
[2025-02-11] MEDS: PRENATAL VIT NO.130/IRON/FOLIC 1 EACH TABLET PO (04:23)
[2025-02-11 04:32] VITALS: BP 121/74; RESP 16; TEMP 36.6
[2025-02-11 10:14] VITALS: BP 126/81; PULSE 89; RESP 16; TEMP 36.7; O2SAT 98
--- NOTE | 2025-02-11 14:15 | P.PN_ITS ---
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 Subjective: Interval history: no c/o no bleeding, pain eating, voiding, ambulating well no dizziness, weakness, palpitations, shortness of breath caring for without any problems Labor: Station: +2 Amniotic Membrane Status: Ruptured Monitor Mode: Palpation Contraction Pattern: Regular Vitals/I&O/Wt Last Vital Signs Temp 98.0 F 02/11/25 10:14 Pulse 89 02/11/25 10:14 Resp 16 02/11/25 10:14 BP 126/81 02/11/25 10:14 Pulse Ox 98 02/11/25 10:14 O2 Del Method Room Air 02/11/25 04:32 Physical Exam 2 Narrative: afebrile, VS normal BPs 132 / 86; 121 / 74 comfortable, awake, alert Lungs: clear Cor: RRR Abd: soft, nontender. fundus firm Ext: no edema; nontender Hgb 8.9 Urinary Catheter Management: [place]: Cath Placed During This Visit: yes, but has since been removed by the nurse Reason for Continuing Indwelling Catheter: Decision to DC Catheter Urinary Catheter Date of Insertion: 02/09/25 Urinary Catheter Time of Insertion: 08:45 Date Urinary Catheter Removed: 02/09/25 Time Urinary Catheter Discontinued: 12:12 Data 02/10/25 00:33 A&P Assessment and plan 1. Vaginal delivery: PPD #2 vacuum-assisted vaginal delivery doing well discharge to home today instructions and precautions given call/return if fever, chills, headache, blurry vision, nausea, vomiting, abdominal pain; vaginal bleeding or discharge; shortness of breath, chest pain, leg pains or swelling; inability to void, perineal pain or swelling; feelings of depression or mood changes; thoughts of suicide or harming others; inability to care for baby. f/u in one week or PRN 2. Hypertension: gestational hypertension BPs improved with Procardia 30 mg XL Continue Procardia 30 mg XL one po daily RTO one week for BP check 3. Anemia: encouraged iron 1-2 tabs / day eat iron- and protein-rich foods call or go to ER if dizziness, weakness, chest pain, palpitations, shortness of breath PDMP PDMP Reviewed: Not Reviewed Attestations 2 Medical Necessity Statement*: patient s/p vaginal delivery, plan to discharge to home today Coding Level of Care Code Acute Code for Chg Fwd Diagnoses Vaginal delivery O80 Hypertension I10 Anemia D64.9
--- NOTE | 2025-02-11 15:05 | PM.OBGYDC ---
Discharge Providers ZOOLOGY TEACHER Date of Admission: 02/08/25 12:25 Date of Discharge: 02/11/25 Attending Provider at Admission: Aleksandr Garsia MD Attending Provider at Discharge: Aleksandr Garsia MD Consults: none Primary ZOOLOGY TEACHER: Aleksandr Garsia MD Primary Care Provider: Marita Gomez Diagnoses at Discharge Discharge Diagnosis 1. Vaginal delivery: Details from hospital stay: 19 y.o. G1 at 37 w 1 d found to have significantly elevated BPs diagnosed with gestational hypertension was admitted for induction of labor patient progressed to complete dilatation fetus was reassuring throughout vacuum-assisted vaginal delivery was done without any complications There was no episiotomy and no lacerations , patient continued to have elevated BPs Procardia was started and her BPs improved patient was discharged to home on the second day with instructions to take procardia 30 mg XL one po daily and iron tabs 1-2 x / day 2. Hypertension: 3. Anemia: Reason for Visit Reason for Visit: IOL Brief History: 19 y.o. G1 at 37 w 1 d found to have significantly elevated BPs diagnosed with gestational hypertension was admitted for induction of labor Hospital Course Hospital Course 19 y.o. G1 at 37 w 1 d found to have significantly elevated BPs diagnosed with gestational hypertension was admitted for induction of labor patient progressed to complete dilatation fetus was reassuring throughout vacuum-assisted vaginal delivery was done without any complications There was no episiotomy and no lacerations , patient continued to have elevated BPs Procardia was started and her BPs improved patient was discharged to home on the second day with instructions to take procardia 30 mg XL one po daily and iron tabs 1-2 x / day Information Peripartum Data: Delivery Method: Vaginal Laceration description: None Episiotomy description: None complications: none Physical Exam Narrative: afebrile, VS normal BPs 132 / 86; 121 / 74 comfortable, awake, alert Lungs: clear Cor: RRR Abd: soft, nontender. fundus firm Ext: no edema; nontender Urinary Catheter Management: [place]: Cath Placed During This Visit: yes, but has since been removed by the nurse Reason for Continuing Indwelling Catheter: Decision to DC Catheter Urinary Catheter Date of Insertion: 02/09/25 Urinary Catheter Time of Insertion: 08:45 Date Urinary Catheter Removed: 02/09/25 Time Urinary Catheter Discontinued: 12:12 History History History 1 Term Miscarriages/Ectopic Living Children Discharge Data Studies Completed and Pending Laboratory Results WBC 10.57 10^3/uL (3.29-11.43) 02/10/25 00:33 RBC 3.25 10^6/uL (3.85-5.65) L 02/10/25 00:33 Hgb 8.90 g/dL (11.27-16.99) L 02/10/25 00:33 Hct 29.3 % (36-47) L 02/10/25 00:33 MCV 90.2 fl (85-98) 02/10/25 00:33 MCH 27.4 pg (27-33) 02/10/25 00:33 MCHC 30.4 g/dL (30-55) 02/10/25 00:33 RDW 13.1 % (12.1-15.1) 02/10/25 00:33 Plt Count 239 10^3/cmm (157-399) 02/10/25 00:33 MPV 11.5 fL (7.4-10.4) H 02/10/25 00:33 Neut % (Auto) 59.2 % 02/08/25 12:40 Lymph % (Auto) 31.2 % 02/08/25 12:40 [place] % (Auto) 5.8 % 02/08/25 12:40 Eos % (Auto) 3.0 % 02/08/25 12:40 Baso % (Auto) 0.4 % 02/08/25 12:40 Neut # (Auto) 4.99 10^3/uL (1.8-7.7) 02/08/25 12:40 Lymph # (Auto) 2.6 10^3/uL (0.8-4.8) 02/08/25 12:40 [place] # (Auto) 0.5 10^3/uL (0.2-0.9) 02/08/25 12:40 Eos # (Auto) 0.3 10^3/uL (0.0-0.8) 02/08/25 12:40 Baso # (Auto) 0.0 10^3/uL (0.0-0.1) 02/08/25 12:40 Nucleated RBC % (auto) 0 % 02/08/25 12:40 Nucleated RBCs # 0.0 /100WBC 02/08/25 12:40 Blood Type O Positive 02/08/25 12:40 Rho(D) Type Rh positive 02/08/25 12:40 Antibody Screen Negative 02/08/25 12:40 Procedures Performed induction of labor vacuum-assisted vaginal delivery Vitals Last Vital Signs Temp 98.0 F 02/11/25 10:14 Pulse 89 02/11/25 10:14 Resp 16 02/11/25 10:14 BP 126/81 02/11/25 10:14 Pulse Ox 98 02/11/25 10:14 O2 Del Method Room Air 02/11/25 04:32 Results Labs OB ([facility]): Obstetrics US 02/07/25 Blood Type O Positive 02/08/25 Antibody Screen Negative 02/08/25 Hct, (36-47) 29.3 % L 02/10/25 Hgb, (11.27-16.99) 8.90 g/dL L 02/10/25 Rho(D) Type Rh positive 02/08/25 Plt Count, (157-399) 239 10^3/cmm 02/10/25 Hep Bs Antigen, (Nonreactive) Non-reactive 08/08/24 Hepatitis C Antibody, (Nonreactive) Non-reactive 08/08/24 Rubella IgG Antibody, (0.0-10.0) 87.7 IU/mL H 08/08/24 RPR, (Nonreactive) Nonreactive 08/08/24 HIV 1&2 Ab & HIV 1 Ag, (Non-Reactiv) Non-reactive 08/08/24 TSH, (0.27-4.20) 4.10 uIU/mL 08/08/24 Glucose 1 Hr 50 gm, (85-140) 95 mg/dL 12/11/24 Ser , Semi-Qnt 89442.00 mIU/mL 07/10/24 HCG, Qual, (Negative) Positive H 07/10/24 Urine Opiates Screen, (Negative) Negative ng/mL 08/08/24 Ur Barbiturates Screen, (Negative) Negative ng/mL 08/08/24 Ur Phencyclidine Scrn, (Negative) Negative ng/mL 08/08/24 Ur Amphetamines Screen, (Negative) Negative ng/mL 08/08/24 U Benzodiazepines Scrn, (Negative) Negative ng/mL 08/08/24 Urine Cocaine Screen, (Negative) Negative ng/mL 08/08/24 U Marijuana (THC) Screen, (Negative) Positive ng/mL H 08/08/24 Micro Urine Specimen 08/08/24 Discharge Plan Discharge Patient Disposition: Home Condition: Stable Prescriptions: New nifedipine [Procardia XL] 30 mg tablet extended release 24hr 30 mg PO DAILY Qty: 30 1RF Continued DHA 200 mg capsule PO DAILY famotidine [Pepcid] 20 mg tablet 20 mg PO BID Qty: 60 2RF metoclopramide HCl [Reglan] 10 mg tablet 10 mg PO Q6H PRN (Reason: nausea and vomiting) Qty: 60 1RF Discharge Order = DC NOW: Discharge Order (Routine); Ordered 02/11/25 Ordered By: Aleksandr Garsia Referrals: Karime Frausto, SIGNAL INTEGRITY ENGINEER [Nurse Practitioner, ZOOLOGY TEACHER] Referral Note: Please call wednesday to schedule appointment Discharge Diet: Usual diet Discharge Activity: Increase activity as tolerated Patient Instructions: Nifedipine (By mouth), Depression (DC), Opioid Safety (DC), Preeclampsia and Eclampsia After Delivery (GEN), Hemorrhage (DC), OB Discharge Report, OB Food/Drug Interaction Guide, Opioid Safety, OB Home Care, OB Vaginal Deliveries - [facility], Patient Portal & [facility] Instructions, Abnormal Bleeding Activity Restrictions/Additional Instructions: Return for BP check in 1-2 weeks Discharge Attestations ZOOLOGY TEACHER Time Spent in Discharge Care*: less than 30 min Coding Level of Care Code Acute Code for Chg Fwd Diagnoses Vaginal delivery O80 Hypertension I10 Anemia D64.9
== END 2025-02-11 09:57 | disposition home or self-care (01) | DRG 807 ==
PROVIDERS: Admitting Provider Obstetrics & Gynecology; PCP Nurse Practitioner Family; Visit Provider Obstetrics & Gynecology
DX: O13.4 Gestational [pregnancy-induced] hypertension without significant proteinuria, complicating childbirth (principal); Z37.0 Single live birth; Z3A.37 37 weeks gestation of pregnancy; O90.81 Anemia of the puerperium; D64.9 Anemia, unspecified
CPT/HCPCS: 36415; 51702; 59025; 59409; 85025; 85027; 86850; 86900; 99211; J2405; J2590; J2795; J7030; J7121; J9999